=== PATIENT | female | born 1960 | race Caucasian/White ===

== ENCOUNTER 2019-11-16 18:22 | Emergency (ER) | payer OTHER ==
[~2019-11-16] VITALS: Ht 165.1 cm; Wt 68.0 kg
== END 2019-11-16 20:04 | disposition home or self-care (01) ==
LOC: ER 18:22
DX: M54.89 Other dorsalgia (principal)

== ENCOUNTER 2019-11-17 14:53 | Emergency (ER) | payer OTHER ==
[~2019-11-17] VITALS: Ht 165.1 cm; Wt 68.0 kg
== END 2019-11-17 18:51 | disposition home or self-care (01) ==
LOC: ER 14:53
DX: S29.012A Strain of muscle and tendon of back wall of thorax, initial encounter (principal); X50.9XXA Other and unspecified overexertion or strenuous movements or postures, initial encounter; Y93.89 Activity, other specified; Y92.89 Other specified places as the place of occurrence of the external cause; Y99.8 Other external cause status